=== PATIENT | female | born 1985 | race Caucasian/White ===

== ENCOUNTER 2022-05-03 13:05 | Emergency (ER) | payer SELFPAY ==
[2022-05-03 14:53] VITALS: BP 117/79
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
== END 2022-05-03 18:54 | disposition home or self-care (01) ==
LOC: ED 13:05
DX: M79.10 Myalgia, unspecified site (principal); V89.2XXA Person injured in unspecified motor-vehicle accident, traffic, initial encounter; Y93.89 Activity, other specified; Y92.89 Other specified places as the place of occurrence of the external cause; Y99.8 Other external cause status
CPT/HCPCS: 99282